=== PATIENT | male | born 1935 | race Caucasian/White ===

== ENCOUNTER 2024-01-27 00:09 | Inpatient (IN) ==
[2024-01-27] MEDS ORDERED: IOPAMIDOL 100 ML BOTTLE IV ONE (00:10)
[2024-01-27 01:25] LABS: POC Calcium, Ionized 1.17 (1.16-1.32); POC Creatinine 1.4 (0.6-1.2); POC Potassium 4.2 (3.3-5.1)
[2024-01-27] MEDS: DEXAMETHASONE 10 MG/ML VIAL IV ONE (01:31)
[2024-01-27] MEDS: ACETAMINOPHEN 1,000 MG/100 ML BAG IV ONE (01:31)
[2024-01-27] MEDS: cefTRIAXone 1 GM VIAL IV ONE (01:56)
[2024-01-27] MEDS: 0.9 % SODIUM CHLORIDE 1,000 ML IV ONE ×2 (01:57→09:44)
[2024-01-27 03:26] LABS: Basophils # (Auto) 0.09 K/mcL (0.00-0.30); Basophils % (Auto) 1.4 % (0.0-2.0); Eosinophils # (Auto) 0.47 K/mcL (0.00-0.70); Eosinophils % (Auto) 7.5 % (0.0-7.0); Hematocrit 37.1 % (40.1-51.0); Hemoglobin 12.5 g/dL (13.7-17.5); Lymphocytes # (Auto) 1.56 K/mcL (1.50-4.80); Lymphocytes % (Auto) 24.9 % (15.5-49.0); Mean Cell Volume 99.2 fL (80.0-100.0); Mean Corpuscular HGB Conc 33.7 g/dL (31.0-36.0); Mean Platelet Volume 10.4 fL (8.8-12.5); Monocytes # (Auto) 0.65 K/mcL (0.10-0.90); Monocytes % (Auto) 10.4 % (1.0-12.0); Neutrophils % (Auto) 55.6 % (38.0-78.0); Platelet Count 202 K/mcL (140-440); RBC 3.74 M/mcL (4.63-6.08); Red Cell Distribution Width 13.7 % (11.5-14.5); WBC 6.3 K/mcL (4.5-11.0)
[2024-01-27] MEDS: VANCOMYCIN 2,000 MG in 0.9 % SODIUM CHLORIDE 500 ML IV ONE (03:35)
[2024-01-27 03:36] LABS: C-Reactive Protein 0.43 mg/dL (0.03-0.80)
[2024-01-27] MEDS: AZTREONAM 2 GM VIAL IV ONE (08:13)
[2024-01-27] MEDS: AZTREONAM 1 GM VIAL IV ONE (08:13)
[2024-01-27] MEDS ORDERED: POTASSIUM CHLORIDE 40 MEQ in DEXTROSE 5% IN WATER 500 ML IV PRN (09:00)
[2024-01-27] MEDS ORDERED: MAGNESIUM SULFATE 2 GM/50 ML BAG IV PRN (09:00)
[2024-01-27] MEDS ORDERED: ONDANSETRON 4 MG/2 ML VIAL IV PRN (09:00)
[2024-01-27] MEDS ORDERED: morphine 4 MG/ML VIAL IV PRN (09:00)
[2024-01-27] MEDS ORDERED: POTASSIUM CHLORIDE 20 MEQ TABLET PO PRN ×2 (09:00)
[2024-01-27] MEDS ORDERED: SENNOSIDES 1 TABLET PO PRN (09:00)
[2024-01-27] MEDS ORDERED: POLYETHYLENE GLYCOL 3350 17 GM PACKET PO PRN (09:00)
[2024-01-27] MEDS ORDERED: LABETALOL HCL 20 MG/4 ML VIAL IV PRN (09:05)
[2024-01-27] MEDS ORDERED: IPRATROPIUM/ALBUTEROL 3 ML AMPUL.NEB NEB PRN (09:05)
[2024-01-27] MEDS ORDERED: hydrALAZINE 20 MG/ML VIAL IV PRN (09:05)
[2024-01-27] MEDS ORDERED: VANCOMYCIN PER PHARMACY IV SCH (09:15)
[2024-01-27] MEDS: DOCUSATE SODIUM 100 MG CAPSULE PO SCH (09:44)
[2024-01-27] MEDS: HEPARIN 5,000 UNIT/ML VIAL SQ SCH (09:44)
[2024-01-27 10:18] LABS: Blood Urea Nitrogen 23 mg/dL (8-23); Carbon Dioxide 21 mmol/L (22-30); Chloride 102 mmol/L (96-108); Glomerular Filtration Rate 54; Glucose 134 mg/dL (70-105); Phosphorous 2.4 mg/dL (2.5-4.5)
[2024-01-27 10:19] LABS: ALT/SGPT 9 U/L (<40); AST/SGOT 23 U/L (<40); Alkaline Phosphatase 94 U/L (39-117); Bilirubin,Direct < 0.2 mg/dL (0-0.3); Bilirubin,Total 0.2 mg/dL (0.1-1.0)
[2024-01-27] MEDS: cefTAZidime 1 GM VIAL IV SCH (10:22)
[2024-01-27] MEDS: metroNIDAZOLE 500 MG/100 ML BAG IV SCH (10:22)
[2024-01-27] MEDS: CEFEPIME 2 GM VIAL IV SCH (13:24)
[2024-01-27] MEDS: 0.9 % SODIUM CHLORIDE 10 ML SYRINGE IV SCH (13:24)
[2024-01-28 06:52] LABS: Vancomycin,Random 8.8 ug/mL
[2024-01-28 07:03] LABS: ALT/SGPT 9 U/L (<40); AST/SGOT 24 U/L (<40); Albumin 3.9 gm/dL (3.2-5.2); Albumin/Globulin Ratio 1.4 (1.0-2.3); Alkaline Phosphatase 83 U/L (39-117); Bilirubin,Direct < 0.2 mg/dL (0-0.3); Bilirubin,Total 0.3 mg/dL (0.1-1.0); Blood Urea Nitrogen 26 mg/dL (8-23); Calcium 8.9 mg/dL (8.6-10.4); Carbon Dioxide 21 mmol/L (22-30); Chloride 103 mmol/L (96-108); Globulin 2.7 gm/dL (2.2-3.7); Glomerular Filtration Rate 54; Glucose 97 mg/dL (70-105); Lactate Dehydrogenase 215 U/L (135-225); Phosphorous 2.9 mg/dL (2.5-4.5); Triglycerides 144 mg/dL (<150); Uric Acid 3.3 mg/dL (2.5-8.0)
[2024-01-28 07:39] LABS: Basophils # (Auto) 0.02 K/mcL (0.00-0.30); Basophils % (Auto) 0.2 % (0.0-2.0); Eosinophils # (Auto) 0.04 K/mcL (0.00-0.70); Eosinophils % (Auto) 0.4 % (0.0-7.0); Hematocrit 36.8 % (40.1-51.0); Hemoglobin 12.2 g/dL (13.7-17.5); Lymphocytes # (Auto) 1.27 K/mcL (1.50-4.80); Lymphocytes % (Auto) 11.3 % (15.5-49.0); Mean Cell Volume 100.8 fL (80.0-100.0); Mean Corpuscular HGB Conc 33.2 g/dL (31.0-36.0); Mean Platelet Volume 10.7 fL (8.8-12.5); Monocytes # (Auto) 0.68 K/mcL (0.10-0.90); Neutrophils % (Auto) 81.9 % (38.0-78.0); Platelet Count 194 K/mcL (140-440); RBC 3.65 M/mcL (4.63-6.08); Red Cell Distribution Width 13.9 % (11.5-14.5); WBC 11.3 K/mcL (4.5-11.0)
[2024-01-28] MEDS: ALLOPURINOL 300 MG TABLET PO SCH (09:17)
[2024-01-28] MEDS: ACETAMINOPHEN 325 MG TABLET PO PRN (18:32)
[2024-01-29] MEDS: HYDROcodone/APAP 5/325MG TABLET PO PRN (01:41)
[2024-01-29 06:28] LABS: Basophils # (Auto) 0.07 K/mcL (0.00-0.30); Basophils % (Auto) 0.9 % (0.0-2.0); Eosinophils # (Auto) 0.44 K/mcL (0.00-0.70); Eosinophils % (Auto) 5.9 % (0.0-7.0); Hematocrit 36.8 % (40.1-51.0); Hemoglobin 12.2 g/dL (13.7-17.5); Lymphocytes # (Auto) 2.34 K/mcL (1.50-4.80); Lymphocytes % (Auto) 31.2 % (15.5-49.0); Mean Cell Volume 100.8 fL (80.0-100.0); Mean Corpuscular HGB Conc 33.2 g/dL (31.0-36.0); Mean Platelet Volume 10.3 fL (8.8-12.5); Monocytes # (Auto) 0.61 K/mcL (0.10-0.90); Monocytes % (Auto) 8.1 % (1.0-12.0); Neutrophils % (Auto) 53.6 % (38.0-78.0); Platelet Count 184 K/mcL (140-440); RBC 3.65 M/mcL (4.63-6.08); WBC 7.5 K/mcL (4.5-11.0)
[2024-01-29 09:17] LABS: ALT/SGPT 9 U/L (<40); AST/SGOT 29 U/L (<40); Albumin 3.9 gm/dL (3.2-5.2); Albumin/Globulin Ratio 1.5 (1.0-2.3); Alkaline Phosphatase 80 U/L (39-117); Bilirubin,Direct < 0.2 mg/dL (0-0.3); Bilirubin,Total 0.3 mg/dL (0.1-1.0); Blood Urea Nitrogen 27 mg/dL (8-23); Calcium 9.1 mg/dL (8.6-10.4); Carbon Dioxide 21 mmol/L (22-30); Chloride 104 mmol/L (96-108); Globulin 2.6 gm/dL (2.2-3.7); Glomerular Filtration Rate 54; Glucose 84 mg/dL (70-105); Lactate Dehydrogenase 177 U/L (135-225); Phosphorous 2.6 mg/dL (2.5-4.5); Triglycerides 119 mg/dL (<150); Uric Acid 3.3 mg/dL (2.5-8.0)
== END 2024-01-30 10:39 | disposition home or self-care (01) | DRG 153 ==
LOC: ED 00:09 → MEDSUR 08:17
PROVIDERS: ADMIT Internal Medicine; ATTEND Internal Medicine

== ENCOUNTER 2024-02-05 05:18 | Inpatient (IN) ==
[2024-02-05] MEDS ORDERED: IOPAMIDOL 100 ML BOTTLE IV ONE (05:19)
[2024-02-05] MEDS: 0.9 % SODIUM CHLORIDE 1,000 ML IV ONE (06:17)
[2024-02-05] MEDS: KETOROLAC 15 MG/ML VIAL IV ONE (06:17)
[2024-02-05] MEDS: methylPREDNISolone SOD SUCC 125 MG/2 ML VIAL IM ONE (06:21)
[2024-02-05] MEDS: methylPREDNISolone SOD SUCC 125 MG/2 ML VIAL IV ONE (06:21)
[2024-02-05 06:26] LABS: Basophils # (Auto) 0.07 K/mcL (0.00-0.30); Basophils % (Auto) 1.2 % (0.0-2.0); Eosinophils % (Auto) 5.2 % (0.0-7.0); Hematocrit 36.7 % (40.1-51.0); Hemoglobin 12.6 g/dL (13.7-17.5); Lymphocytes # (Auto) 1.39 K/mcL (1.50-4.80); Lymphocytes % (Auto) 24.3 % (15.5-49.0); Mean Cell Volume 99.7 fL (80.0-100.0); Mean Corpuscular HGB Conc 34.3 g/dL (31.0-36.0); Mean Platelet Volume 9.8 fL (8.8-12.5); Monocytes # (Auto) 0.62 K/mcL (0.10-0.90); Monocytes % (Auto) 10.8 % (1.0-12.0); Neutrophils % (Auto) 58.2 % (38.0-78.0); Platelet Count 189 K/mcL (140-440); RBC 3.68 M/mcL (4.63-6.08); Red Cell Distribution Width 13.5 % (11.5-14.5); WBC 5.7 K/mcL (4.5-11.0)
[2024-02-05 06:37] LABS: ALT/SGPT 26 U/L (<40); AST/SGOT 30 U/L (<40); Albumin 3.9 gm/dL (3.2-5.2); Albumin/Globulin Ratio 1.4 (1.0-2.3); Alkaline Phosphatase 84 U/L (39-117); Bilirubin,Total 0.3 mg/dL (0.1-1.0); Blood Urea Nitrogen 32 mg/dL (8-23); Calcium 9.3 mg/dL (8.6-10.4); Carbon Dioxide 24 mmol/L (22-30); Chloride 105 mmol/L (96-108); Globulin 2.8 gm/dL (2.2-3.7); Glomerular Filtration Rate 60; Glucose 94 mg/dL (70-105)
[2024-02-05] MEDS: CEFEPIME 2 GM VIAL IV ONE (09:53)
[2024-02-05] MEDS: CEFEPIME 2 GM VIAL IV SCH (09:54)
[2024-02-05] MEDS ORDERED: SENNOSIDES 1 TABLET PO PRN (10:57)
[2024-02-05] MEDS ORDERED: MAGNESIUM HYDROXIDE 30 ML ORAL.SUSP PO PRN (10:57)
[2024-02-05] MEDS ORDERED: DOCUSATE SODIUM 100 MG CAPSULE PO PRN (10:57)
[2024-02-05] MEDS ORDERED: ACETAMINOPHEN 325 MG TABLET PO PRN (10:57)
[2024-02-05] MEDS ORDERED: ONDANSETRON 4 MG/2 ML VIAL IV PRN (10:57)
[2024-02-05] MEDS: 0.9 % SODIUM CHLORIDE 10 ML SYRINGE IV SCH (14:45)
[2024-02-05] MEDS: CIPROFLOXACIN/DEXAMETH OTIC BOTTLE 7.5ML AD SCH (20:38)
[2024-02-06] MEDS: HYDROcodone/APAP 5/325MG TABLET PO PRN (04:05)
[2024-02-06 06:27] LABS: Basophils # (Auto) 0.02 K/mcL (0.00-0.30); Basophils % (Auto) 0.1 % (0.0-2.0); Eosinophils # (Auto) 0.01 K/mcL (0.00-0.70); Eosinophils % (Auto) 0.1 % (0.0-7.0); Hematocrit 34.8 % (40.1-51.0); Hemoglobin 11.8 g/dL (13.7-17.5); Lymphocytes # (Auto) 1.46 K/mcL (1.50-4.80); Mean Cell Volume 99.1 fL (80.0-100.0); Mean Corpuscular HGB Conc 33.9 g/dL (31.0-36.0); Mean Platelet Volume 10.2 fL (8.8-12.5); Monocytes # (Auto) 1.03 K/mcL (0.10-0.90); Monocytes % (Auto) 6.4 % (1.0-12.0); Platelet Count 200 K/mcL (140-440); RBC 3.51 M/mcL (4.63-6.08); Red Cell Distribution Width 13.5 % (11.5-14.5); WBC 16.2 K/mcL (4.5-11.0)
[2024-02-06 06:37] LABS: Blood Urea Nitrogen 36 mg/dL (8-23); Carbon Dioxide 22 mmol/L (22-30); Chloride 104 mmol/L (96-108); Glucose 106 mg/dL (70-105)
[2024-02-06 06:38] LABS: ALT/SGPT 22 U/L (<40); AST/SGOT 23 U/L (<40); Albumin 3.5 gm/dL (3.2-5.2); Albumin/Globulin Ratio 1.3 (1.0-2.3); Alkaline Phosphatase 75 U/L (39-117); Bilirubin,Total 0.3 mg/dL (0.1-1.0); Calcium 8.8 mg/dL (8.6-10.4); Globulin 2.7 gm/dL (2.2-3.7); Glomerular Filtration Rate 60
[2024-02-06] MEDS: ALLOPURINOL 300 MG TABLET PO SCH (08:36)
[2024-02-06] MEDS ORDERED: GADOBENATE DIMEGLUMINE 20 ML/VIAL IV ONE (11:57)
[2024-02-06] MEDS ORDERED: 0.9 % SODIUM CHLORIDE 10 ML SYRINGE IV PRN (17:40)
[2024-02-06] MEDS: 0.9 % SODIUM CHLORIDE 10 ML SYRINGE IV SCH (21:06)
[2024-02-07 06:36] LABS: Basophils # (Auto) 0.09 K/mcL (0.00-0.30); Basophils % (Auto) 0.9 % (0.0-2.0); Eosinophils # (Auto) 0.35 K/mcL (0.00-0.70); Eosinophils % (Auto) 3.6 % (0.0-7.0); Hematocrit 36.4 % (40.1-51.0); Hemoglobin 12.3 g/dL (13.7-17.5); Lymphocytes # (Auto) 2.34 K/mcL (1.50-4.80); Mean Cell Volume 99.5 fL (80.0-100.0); Mean Corpuscular HGB Conc 33.8 g/dL (31.0-36.0); Mean Platelet Volume 10.2 fL (8.8-12.5); Monocytes # (Auto) 0.59 K/mcL (0.10-0.90); Monocytes % (Auto) 6.1 % (1.0-12.0); Neutrophils % (Auto) 65.3 % (38.0-78.0); Platelet Count 187 K/mcL (140-440); RBC 3.66 M/mcL (4.63-6.08); Red Cell Distribution Width 13.7 % (11.5-14.5); WBC 9.8 K/mcL (4.5-11.0)
[2024-02-07 06:52] LABS: ALT/SGPT 20 U/L (<40); AST/SGOT 26 U/L (<40); Albumin 3.8 gm/dL (3.2-5.2); Albumin/Globulin Ratio 1.5 (1.0-2.3); Alkaline Phosphatase 81 U/L (39-117); Bilirubin,Total 0.2 mg/dL (0.1-1.0); Blood Urea Nitrogen 36 mg/dL (8-23); Carbon Dioxide 24 mmol/L (22-30); Chloride 105 mmol/L (96-108); Globulin 2.6 gm/dL (2.2-3.7); Glomerular Filtration Rate 60; Glucose 77 mg/dL (70-105)
[2024-02-07] MEDS ORDERED: LIDOCAINE 1% 10 ML VIAL SQ ONE (09:57)
[2024-02-07] MEDS ORDERED: SODIUM CHLORIDE IRRIG SOLUTION 500 ML BOTTLE IRR ONE (09:57)
== END 2024-02-07 14:55 | disposition home or self-care (01) | DRG 153 ==
LOC: ED 05:18 → MEDSUR 10:35
PROVIDERS: ADMIT Student in an Organized Health Care Education/Training Program; ATTEND Student in an Organized Health Care Education/Training Program